=== PATIENT | male | born 1995 | race Caucasian/White ===

== ENCOUNTER 2023-03-06 19:05 | Outpatient (CLI) | payer OTHER, MEDICAID, SELFPAY | END 2023-03-06 19:06 | disposition home or self-care (01) | LOC: AMB 03-09 09:28 | PROVIDERS: Visit Provider Student in an Organized Health Care Education/Training Program | DX: S29.9XXA Unspecified injury of thorax, initial encounter (principal); S09.90XA Unspecified injury of head, initial encounter; V48.0XXA Car driver injured in noncollision transport accident in nontraffic accident, initial encounter; Y92.410 Unspecified street and highway as the place of occurrence of the external cause | CPT/HCPCS: A0425; A0427 ==